=== PATIENT | female | born 1940 | race Caucasian/White ===

== ENCOUNTER 2020-11-01 07:57 | Outpatient (CLI) | payer MEDICARE, SELFPAY ==
--- NOTE | ~2020-11-01 | MM_ITS ---
EXAMINATION: MM screening [facility] w sharmin HISTORY: Screening TECHNIQUE: Craniocaudal and mediolateral oblique 3-D tomosynthesis images were obtained and synthetic 2-D images were generated. CAD analysis was submitted and interpreted. COMPARISON: Comparison to multiple prior studies sequentially, with oldest reviewed study dated 03/2011. BREAST PARENCHYMAL COMPOSITION: There are scattered areas of fibroglandular density. FINDINGS: There is no evidence of suspicious mass, calcification, or architectural distortion to sugg est malignancy in either breast. There has been no suspicious interval change. IMPRESSION: 1. No mammographic evidence of malignancy. 2. Recommend routine screening mammography in one year. BI-RADS Category 1: Negative Reviewed, dictated and finalized at location A. [facility]ER CLIENT SERVICE
== END 2020-11-01 07:58 | disposition home or self-care (01) ==
LOC: ANHIMG 08:03
PROVIDERS: PCP Family Medicine Adolescent Medicine; Visit Provider Obstetrics & Gynecology
DX: Z12.31 Encounter for screening mammogram for malignant neoplasm of breast (principal)
CPT/HCPCS: 77063; 77067

== ENCOUNTER 2022-04-06 10:15 | Outpatient (CLI) | payer MEDICARE, SELFPAY ==
--- NOTE | ~2022-04-06 | MM_ITS ---
EXAMINATION: MM screening [facility] BI w sharmin HISTORY: Screening TECHNIQUE: Craniocaudal and mediolateral oblique 3-D tomosynthesis images were obtained and synthetic 2-D images were generated. CAD analysis was submitted and interpreted. COMPARISON: Comparison to multiple prior studies sequentially, with oldest reviewed study dated 07/2013 BREAST PARENCHYMAL COMPOSITION: There are scattered areas of fibroglandular density. FINDINGS: There is no evidence of suspicious mass, calcification, or architectural distortion to sugg est malignancy in either breast. There has been no suspicious interval change. IMPRESSION: 1. No mammographic evidence of malignancy. 2. Recommend routine screening mammography in one year. BI-RADS Category 1: Negative Reviewed, dictated and finalized at location A.
== END 2022-04-06 10:16 | disposition home or self-care (01) ==
PROVIDERS: PCP Family Medicine Adolescent Medicine; Visit Provider Obstetrics & Gynecology
DX: Z12.31 Encounter for screening mammogram for malignant neoplasm of breast (principal)
CPT/HCPCS: 77063; 77067

== ENCOUNTER 2023-12-17 09:49 | Outpatient (CLI) | payer MEDICARE, SELFPAY ==
--- NOTE | ~2023-12-17 | MM_ITS ---
EXAMINATION: MM screening [facility] BI w sharmin HISTORY: Screening mammogram TECHNIQUE: Craniocaudal and mediolateral oblique 3-D tomosynthesis images were obtained and synthetic 2-D images were generated. CAD analysis was submitted and interpreted. COMPARISON: 04/06/2022, 11/01/2020, 07/07/2019 BREAST PARENCHYMAL COMPOSITION: The breasts are almost entirely fatty. FINDINGS: No suspicious mass, calcification, or architectural distortion are identified in either daniel ast to suggest malignancy. There has been no suspicious interval change. IMPRESSION: 1. No mammographic evidence of malignancy. 2. Recommend routine screening mammography while the patient remains in good health. BI-RADS Category 1: Negative Reviewed, dictated and finalized at location A. [employer]OR DESIGN INSTRUCTOR IMPRESSION: 1. No mammographic evidence of malignancy. 2. Recommend routine screening mammography while the patient remains in good he alth. BI-RADS Category 1: Negative
== END 2023-12-17 09:50 | disposition home or self-care (01) ==
PROVIDERS: PCP Family Medicine Adolescent Medicine; Visit Provider Obstetrics & Gynecology
DX: Z12.31 Encounter for screening mammogram for malignant neoplasm of breast (principal)
CPT/HCPCS: 77063; 77067

== ENCOUNTER 2024-02-25 14:28 | Outpatient (CLI) | payer MEDICARE, SELFPAY ==
--- NOTE | ~2024-02-25 | XR_ITS ---
XR finger 5th RT min 2V DATE: 02/25/2024 14:48 INDICATION: Fall. Fifth digit injury. TECHNIQUE: 4 views COMPARISON: None FINDINGS: Osteopenia. Joint space narrowing and mild spurring at the proximal and distal interphalangeal joints consistent with osteoarthritis. No fracture or dislocation, periosteal reaction or bone destruction is detected. IMPRESSION: Osteophyte is at PIP and DIP joints Osteopenia No fracture or dislocation is detected Reviewed, dictated and finalized at location B.
--- NOTE | ~2024-02-25 | XR_ITS ---
XR finger 4th LT min 2V DATE: 02/25/2024 14:48 INDICATION: Fall. Pain. TECHNIQUE: 4 views of fourth digit, left hand COMPARISON: None FINDINGS: There is osteopenia. There are couple of small corticated bony densities near the proximal interphalangeal joint, which ma y be small avulsion fractures, recent and/or chronic, and/or degenerative ossicles there is mild soft tissue swelling centered at the proximal interphalangeal joint, which favors a recent small cortical avulsion fracture. There is prominent joint space narrowing at the proximal and distal interphalangeal joints consistent with osteoarthritis. Otherwise no fracture or dislocation, periosteal reaction or bone destruction. 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 IMPRESSION: Suspected small recent cortical avulsion; differential diagnosis in cludes chronic avulsion fracture and/or degenerative ossicles adjacent to the p roximal interphalangeal joint Osteoarthritis at the PIP and DIP joints Osteopenia
== END 2024-02-25 14:29 | disposition home or self-care (01) ==
LOC: ANHIMG 14:31
PROVIDERS: PCP Family Medicine Adolescent Medicine; Visit Provider Plastic Surgery
DX: M79.645 Pain in left finger(s) (principal); M85.841 Other specified disorders of bone density and structure, right hand
CPT/HCPCS: 73140

== ENCOUNTER 2025-01-25 09:00 | Outpatient (CLI) | payer MEDICARE, SELFPAY | END 2025-01-25 09:01 | disposition home or self-care (01) | LOC: MICIMG 09:02 | PROVIDERS: PCP Family Medicine Adolescent Medicine; Visit Provider Family Medicine Adolescent Medicine | DX: R91.8 Other nonspecific abnormal finding of lung field (principal); K44.9 Diaphragmatic hernia without obstruction or gangrene | CPT/HCPCS: 71250 ==

== ENCOUNTER 2025-01-25 11:24 | Outpatient (CLI) | payer MEDICARE, SELFPAY | END 2025-01-25 11:25 | disposition home or self-care (01) | LOC: GOSHIMG 11:25 | PROVIDERS: PCP Family Medicine Adolescent Medicine; Visit Provider Family Medicine Adolescent Medicine | DX: R29.898 Other symptoms and signs involving the musculoskeletal system (principal); M43.06 Spondylolysis, lumbar region | CPT/HCPCS: 72148 ==

== ENCOUNTER 2025-03-16 09:34 | Outpatient (CLI) | payer MEDICARE, SELFPAY ==
--- OUTSIDE RECORDS SUMMARY | 2025-03-16 10:37 | XMS_ITS | Clinical Summary ---
Author Organization [facility] Address [address] [place] [address] Care Team Providers Care Hold Worker Name Role Phone Flaco Brush MD Primary Care Provider [phone] Allergies Active Allergy Reactions Criticality Noted Date Comments Amoxicillin Itching Low 05/14/2020 Meloxicam Unknown 05/14/2020 Patient doesn't remember Medications amLODIPine 5 MG tablet Take 1 tablet (5 mg total) by mouth daily. 0 Active valsartan-hydro CHLOROthiazide 160-25 MG tablet Take 1 tablet by mouth daily. 0 Active colestipol 1 g tablet Take 1 tablet (1 g total) by mouth 2 (two) times a day. 0 Active omeprazole 20 MG capsule Take 1 capsule (20 mg total) by mouth daily. 0 Active vitamin D3, cholecalciferol , 1000 UNIT Tab tablet Take 2 tablets (2,000 Units total) by mouth daily. Active Azelaic Acid (FINACEA) 15 % gel Apply 1 Application topically 2 (two) times daily as needed. Active betamethasone valerate cream 0.1 % cream Apply 1 each topically 2 (two) times daily as needed. Active traMADol (ULTRAM) 50 MG tabletIndicatio ns:Acute Pain < 7 Day Supply Take 1 tablet (50 mg total) by mouth every 6 (six) hours as needed for Pain. Indications: Acute Pain < 7 Day Supply 15 tablet 4 Active levothyroxine (SYNTHROID) 75 MCG tablet Take 1 tablet (75 mcg total) by mouth daily. 4 Active pravastatin (PRAVACHOL) 10 MG tablet Take 1 tablet (10 mg total) by mouth daily. 4 Active propranolol LA (INDERAL LA) 120 MG 24 hr capsule Take 1 capsule (120 mg total) by mouth daily. 4 Active traMADol (ULTRAM) 50 MG tabletIndicatio ns:Acute Pain < 7 Day Supply Take 1 tablet (50 mg total) by mouth every 6 (six) hours as needed for Pain. Indications: Acute Pain < 7 Day Supply Take along with one Tylenol 325 mg tablet 20 tablet 4 Active Active Problems Problem Noted Date Diagnosed Date Sepsis ([facility]) 05/14/2020 UTI (urinary tract infection) 05/14/2020 Hypokalemia 05/14/2020 Lactic acidosis 05/14/2020 Leukocytosis 05/14/2020 Elevated serum creatinine 05/14/2020 Hypomagnesemia 05/14/2020 Encounters Date Type Department Care Team Description 02/08/2025 Scan [facility] Scanned, [facility] 01/21/2025 Scan [facility] INFO [facility] Scanned, Doc Med Group from Last 3 Months Immunizations Immunization Administration Dates Next Due MODERNA COVID-19 (12+) MRNA, LNP-S, PF, 100 MCG/ 0.5 ML DOSE 01/26/2021 Family History Medical History Relation Comments None Daughter Relation Status Comments Daughter Social History Tobacco Use Types Packs/Day Years Used Date Smoking Tobacco: Never Passive Smoke Exposure: Never Smokeless Tobacco: Never Tobacco Cessation:Counseling Given: No Alcohol Use Standard Drinks/Week Comments Never 0 (1 standard drink = 0.6 oz pur e alcohol) AUDIT-C Answer Date Recorded Frequency of Alcohol Consumption Never 05/14/2020 Average Number of Drinks Not on file 020 Frequency of Binge Drinking Not on file 04/26 PHQ-2 Answer Date Recorded Patient Health Questionnaire-2 Score 0 07/16/2024 Comments No Sex and Gender Information Value Date Recorded Sex Assigned at Not on file Legal Sex Female 8:24 AM CDT Gender Identity Not on file Sexual Orientation Not on file Last Filed Vital Signs Vital Sign Reading Time Taken Comments Blood Pressure 159/79 08/20/2024 11:36 AM CDT Pulse 63 08/20/2024 11:36 AM CDT Temperature 37.2 C (99 F) 08/20/2024 11:06 AM CDT Respiratory Rate 20 06/01/2024 3:30 PM CDT Oxygen Saturation 97% 08/20/2024 11:06 AM CDT Inhaled Oxygen Concentration - - Weight 79 kg (174 lb 3.2 oz) 08/20/2024 11:06 AM CDT Height 160 cm (5' 3 ) 08/20/2024 11:06 AM CDT pt states Body Mass Index 30.86 08/20/2024 11:06 AM CDT Plan of Treatment Health Maintenance Due Date Last Done Comments DTaP, Tdap and Td Vaccines ( 1 - Tdap) 1958 Pneumococcal Vaccine: 50+ Ye ars (1 of 1 - PCV) 1989 Zoster Vaccines (1 of 2) 1989 Annual Medicare Wellness Visit 2004 RSV Immunization or 60+ Years (1 - 1-dose 75+ series) 2014 COVID-19 Vaccine (2 - 2023-2 5 season) 2024 01/26/2021 PHQ-2 (Physician [place]) 11/25/2024 07/16/2024 Meningococcal B Vaccine Aged Out No l onger eligible based on patient's age to complete this topic Meningococcal Vaccine Aged Out No selam trinity eligible based on patient's age to complete this topic RSV Immunizations Under 20 Months Aged Out No longer eligible based on patient's age to complete this topic Insurance Advance Directives * Full Code (Latest Code Status on File) Date Activated Date Inactivated Comments 05/14/2020 10:43 AM 05/16/2020 1:06 PM Care Teams Hold Worker Relationship Specialty Start Date End Date Flaco Brush MD [phone] [address] PCP - General FAMILY PRACTICE 05/14/20
--- NOTE | 2025-03-16 12:00 | NEURO_ITS ---
Impression: # Complains of gait dysfunction. Non-diabetic. ? # Moderate fairly symmetrical axonal neuropathy. ? # Needle/EMG exam reveals neurogenic changes. ? # Clinical correlation recommended. ?Nerve Conduction Studies Anti Sensory Summary Table ?Stim Site NR Peak (ms) P-T Amp (?V) Site1 Site2 Delta-P (ms) Dist (cm) Romie (m/s) Left Sup Fibular Anti Sensory (Ant Lat Mall)??? NO RESPONSE 14 cm NR 14 cm Ant Lat Mall 16.0 Right Sup Fibular Anti Sensory (Ant Lat Mall)??? NO RESPONSE 14 cm NR 14 cm Ant Lat Mall 16.0 Left Sural Anti Sensory (Lat Mall)??? NO RESPONSE Calf NR Calf Lat Mall 16.0 Right Sural Anti Sensory (Lat Mall)??? NO RESPONSE Calf NR Calf Lat Mall 16.0 Motor Summary Table ?Stim Site NR Onset (ms) O-P Amp (mV) Site1 Site2 Delta-0 (ms) Dist (cm) Romie (m/s) Left Peroneal Motor (Vastus Med) Ankle ? 5.0 0.9 Popit Ankle 13.3 39.0 29 Popit ? 18.3 0.5 Right Peroneal Motor (Vastus Med) Ankle ? 4.9 0.9 Popit Ankle 10.7 37.0 35 Popit ? 15.6 1.0 Left Tibial Motor (Abd Andres Brev) Ankle ? 5.7 0.1 Knee Ankle 11.6 40.0 34 Knee ? 17.3 0.3 Right Tibial Motor (Abd Andres Brev) Ankle ? 4.5 0.3 Knee Ankle 11.9 37.0 31 Knee ? 16.4 0.6 F Wave Studies ?NR F-Lat (ms) L-R F-Lat (ms) Left Peroneal (Mrkrs) (EDB)??? DISPERSED RESPONSE NR Right Peroneal (Mrkrs) (EDB)??? DISPERSED RESPONSE NR Left Tibial (Mrkrs) (Abd Hallucis)??? DISPERSED RESPONSE NR Right Tibial (Mrkrs) (Abd Hallucis)??? DISPERSED RESPONSE NR EMG ?Side Muscle Nerve Root Ins Act Fibs Amp Dur Recrt Comment Right AntTibialis Dp Br Fibular L4-5 Nml Nml Decr >12ms +1 Right Gastroc Tibial S1-2 Nml Nml Decr >12ms +1 Right Fibularis Long Sup Br Fibular L5-S1 Nml Nml Decr >12ms +1 Right Flex Dig Long Tibial L5-S2 Nml Nml Decr >12ms +1 Right Ext Dig Brev Dp Br Fibular L5, S1 Nml Nml Decr >12ms +1 Right QuadratusFem QuadFemoris L4-5, S1 Nml Nml Decr >12ms +1 Left AntTibialis Dp Br Fibular L4-5 Nml Nml Decr >12ms +1 Left Gastroc Tibial S1-2 Nml Nml Decr >12ms +1 Left Fibularis Long Sup Br Fibular L5-S1 Nml Nml Decr >12ms +1 Left Flex Dig Long Tibial L5-S2 Nml Nml Decr >12ms +1 Left Ext Dig Brev Dp Br Fibular L5, S1 Nml Nml Decr >12ms +2 Left QuadratusFem QuadFemoris L4-5, S1 Nml Nml Decr >12ms +1 MTDD
== END 2025-03-16 09:35 | disposition home or self-care (01) ==
PROVIDERS: PCP Family Medicine Adolescent Medicine; Visit Provider Family Medicine Adolescent Medicine
DX: R29.898 Other symptoms and signs involving the musculoskeletal system (principal)
CPT/HCPCS: 95886; 95910

== ENCOUNTER 2025-04-23 14:24 | Outpatient (CLI) | payer MEDICARE, SELFPAY ==
--- NOTE | ~2025-04-23 | MM_ITS ---
EXAMINATION: MM screening [facility] BI w sharmin HISTORY: Screening TECHNIQUE: Craniocaudal and mediolateral oblique 3-D tomosynthesis images were obtained and synthetic 2-D images were generated. CAD analysis was submitted and interpreted. COMPARISON: Comparison to multiple prior studies sequentially, with oldest reviewed study dated 07/07. BREAST PARENCHYMAL COMPOSITION: Not dense: There are scattered areas of fibroglandular density. FINDINGS: There is no evidence of suspicious mass, calcification, or architectural distortion to sugg est malignancy in either breast. There has been no suspicious interval change. IMPRESSION: 1. No mammographic evidence of malignancy. 2. Recommend routine screening mammography in one year. BI-RADS Category 1: Negative Reviewed, dictated and finalized at location A.
== END 2025-04-23 14:25 | disposition home or self-care (01) ==
LOC: ANHIMG 14:26
PROVIDERS: PCP Family Medicine Adolescent Medicine; Visit Provider Obstetrics & Gynecology
DX: Z12.31 Encounter for screening mammogram for malignant neoplasm of breast (principal)
CPT/HCPCS: 77063; 77067